=== PATIENT | female | born 1945 | race Caucasian/White ===

== ENCOUNTER → 2017-11-22 | Outpatient (CLI) | payer MEDICARE ==
[~2017-11-22] MED LIST: CYCL10TA PO; DILA2TAB4 PO; GABA300C5 PO; HYDR-3583 PO; PROM25TA5 PO
[2017-11-22 08:54] LABS: HEMATOCRIT 38.4 % (35.0-46.0); HEMOGLOBIN 12.9 GM/DL (11.6-15.3); MEAN CELL VOLUME 88.9 FL (80.0-100.0); MEAN CORPUSCULAR HEMOGLOBIN 29.8 PG (27.0-34.0); MEAN CORPUSCULAR HGB CONC 33.5 % (32.0-36.0); MEAN PLATELET VOLUME 8.3 FL (7.0-11.0); PLATELET COUNT 309 TH/MM3 (150-450); RED BLOOD COUNT 4.32 MIL/MM3 (4.00-5.30); WHITE BLOOD COUNT 5.5 TH/MM3 (4.0-11.0)
[2017-11-22 09:16] LABS: ALBUMIN 3.7 GM/DL (3.4-5.0); AST (GOT) 15 U/L (15-37); BICARBONATE 29.5 MEQ/L (21.0-32.0); BLOOD UREA NITROGEN 22 MG/DL (7-18); CALCIUM 9.1 MG/DL (8.5-10.1); CHLORIDE 107 MEQ/L (98-107); CREATININE 0.88 MG/DL (0.50-1.00); GLOMERULAR FILTRATION RATE 63 ML/MIN (>89); GLUCOSE,FASTING 104 MG/DL (74-99); SODIUM (NA) 141 MEQ/L (136-145)
[2017-11-22 09:27] LABS: ALKALINE PHOSPHATASE 71 U/L (45-117); ALT (GPT) 20 U/L (10-53); FREE T4 1.09 NG/DL (0.76-1.46); TOTAL BILIRUBIN ADULT 0.3 MG/DL (0.2-1.0); TOTAL PROTEIN 7.4 GM/DL (6.4-8.2)
== END ==
LOC: PLAB 07:35
PROVIDERS: ATTEND Family Medicine
DX: R23.2 Flushing (principal); Z11.59 Encounter for screening for other viral diseases
CPT/HCPCS: 36415; 80053; 84439; 84443; 85027; 86803